=== PATIENT | male | born 1945 | race Caucasian/White ===

== ENCOUNTER 2016-10-15 17:48 | Emergency (ER) | payer MEDICARE, OTHER ==
--- NOTE | ~2016-10-15 | EKG ---
PATIENT: AMBERLY CORREA UNIT #: [id number] Ventricular Rate: 102 BPM Atrial Rate: 102 BPM P-R Interval: 172 ms QRS Duration: 88 ms Q-T Interval: 350 ms QTC Calculation(Bezet): 456 ms P [place]: 37 degrees Calculated R [place]: 42 degrees Calculated T [place]: 53 degrees Diagnosis Line: Sinus tachycardia Diagnosis Line: Otherwise normal ECG Diagnosis Line: When compared with ECG of 03-NOV-2015 19:22, Diagnosis Line: Vent. rate has increased BY 54 BPM Diagnosis Line: Confirmed by SILVIA CORRAL MD ([id number]) on Diagnosis Line: 10/19/2016 10:45:04 AM INTERPRETING MD: ELLIS POLO
--- NOTE | ~2016-10-15 | CR72 ---
[facility] A Service of [facility] & [facility] RADIOLOGY TEXT RESULTS PATIENT: AMBERLY CORREA LOCATION: [facility] : 41 UNIT #: [id number] AGE: [address]: Jf Baker MD SEX: M ORDER DR: [id number] [facility] [address] [place], [place] [address] [id number] MR#: [id number] Acc #: [id number] NAME: AMBERLY CORREA. : 1945 SEX: M STUDY DATE/TIME: 10/15/2016 19:02 UNIT: [facility] ROOM: STUDY DESCRIPTION: CR Chest Single View Portable Attending Physician: Jf Baker Ordering Physician: Ed Doc Liliana Ortiz Primary Care Physician: Lon Joy M.D. MEDICAL IMAGING REPORT This report is preliminary unless electronic signature is present EXAM Frontal chest, 10/15/2016 INDICATION 71-year-old male with chest pain since a fall from the bed today, hypertension, COPD. TECHNIQUE Frontal chest compared with 11/03/2015 FINDINGS The heart is enlarged but stable. Coarsened interstitial markings present bilaterally and not significantly changed suggestive of chronic fibrosis. No pneumothorax. No effusion or dense consolidation. IMPRESSION Cardiomegaly with chronic interstitial prominence throughout both lungs suggestive of chronic fibrosis rather than chronic edema. Dictated by... Angel Lyons M.D. THIS IS AN ELECTRONICALLY VERIFIED REPORT Angel Lyons M.D. at 10/16/2016 8:30 AM [place] TD: 10/16/2016 01:26 JOB #: [id number] MEDICAL IMAGING REPORT Page 1 of 1 COPY
[~2016-10-15 17:48] MED LIST: ?BP MED; ALBUTEROL17 GM; ALBUTEROL17 GM INH; AMBIEN10 MG PO; ASPIRIN PO; ASPIRIN81 M2 PO; ASPIRIN81 MG PO; ATARAX PO; ATIVAN PO; ATIVAN0.5 M1 PO; ATORVASTATIN CA20 MG PO; BISACODYL EC5 M1 PO; BUSPAR15 M2 PO; BUSPAR15 M3 PO; BUSPIRONE HCL10 M1 PO; CALAN-SR CAPL180 MG PO; CAPOZIDE PO; CATAPRES0.1 M1 PO; CATAPRES0.1 MG PO; CELEXA20 MG PO; CHEWABLE ASPIRI81 MG PO; CLONAZEPAM0.5 MG PO; CLONIDINE HCL0.3 MG PO; CLONIDINE PO; CLOPIDOGREL75 MG PO; COLACE PO; COLACE50 MG PO; COZAAR PO; COZAAR100 MG PO; COZAAR25 MG PO; DESYREL50 MG PO; DOC-Q-LACE100 MG PO; DOCUSATE SODIU100 MG PO; DOXEPIN HCL50 MG PO; FISH OIL SOFTGE1 CA1 PO; FLOMAX0.4 M1 PO; FOLIC ACID1 MG PO; GOLYTELY4000 ML PO; HCTZ PO; HUMIBID-LA600 MG DOB; HYDRALAZINE HCL50 MG PO; HYDROCHLOROTHIA25 MG PO; HYDROXYZINE HCL25 M1 PO; KLONOPIN0.5 M3 PO; LORAZEPAM1 MG PO; LOSARTAN POTAS100 MG PO; LOSARTAN POTASS50 MG PO; MEN'S DAILY FOR1 CAP PO; METOPROLOL TAR25 MG PO; MILK OF MAGNESIA PO; MIRALAX17 GM; MIRALAX17 GM PO; MULTI VITAMIN1 EACH PO; NITROGLYCERIN0.4 MG SL; NITROGLYGERIN0.4 MG SL; NO MEDICATIONS; NORVASC10 MG PO; OXYGEN; PAROXETINE HCL20 MG PO; PAXIL PO; PAXIL30 MG PO; PRAVACHOL PO; PRAVACHOL20 MG PO; PRAVASTATIN SOD20 MG PO; PREDNISONE PO; PREDNISONE10 MG PO; SYMBICORT INH; TOPROL XL 50 MG50 MG PO; TYLENOL/CODEINE1 TA1 PO; VALIUM2 MG PO; VERAPAMIL ER180 M1 PO; VERAPAMIL ER180 MG PO; VERAPAMIL ER240 MG PO; VIBRAMYCIN100 M1 DOB; XANAX0.5 MG PO; [UNRECOGNIZED DRUG - REMARK]
[2016-10-15 19:08] LABS: BASOPHIL# 0.1 X10e3 (0-0.3); BASOPHIL% 0.4 % (0-2.5); EOSINOPHIL# 0.3 X10e3 (0-0.7); EOSINOPHIL% 2.1 % (0.0-7.0); HEMOGLOBIN 8.9 gm/dL (13.0-16.0); LYMPHOCYTE# 2.5 X10e3 (1.0-3.5); LYMPHOCYTE% 18.4 % (17.0-45.0); MEAN CELL VOLUME 83.9 FL (83-96); MEAN CORPUSCULAR HEMOGLOBIN 26.8 PG (28-34); MEAN PLATELET VOLUME 7.6 FL (6.5-11.5); MONOCYTE# 1.1 X10e3 (0-1.0); MONOCYTE% 8.1 % (3.0-12.0); NEUTROPHIL# 9.7 X10e3 (1.5-7.1); PLATELET COUNT 361 X10e3 (140-420); RED BLOOD COUNT 3.33 X10e (3.90-5.60); RED CELL DISTRIBUTION WIDTH 15.8 % (11.0-15.5); WHITE BLOOD COUNT 13.7 X10e3 (4.0-10.5)
[2016-10-15 19:13] LABS: DIFF IND NO
[2016-10-15 19:26] LABS: BUN/CREATININE RATIO 14.5; GLOM FILT RATE Estimated 32.2 mL/min (>60); POTASSIUM 3.9 mmol/L (3.5-5.1)
[2016-10-15 19:27] LABS: POC - CKMB 13.4 ng/mL (0.0-7.9); POC - TROPONIN <0.05 ng/mL (<=0.05)
[2016-10-15 21:21] LABS: POC - CKMB 9.5 ng/mL (0.0-7.9); POC - TROPONIN <0.05 ng/mL (<=0.05)
[2016-11-07] MEDS ORDERED: CARDURA4 M1 PO (23:09)
[2016-11-07] MEDS ORDERED: DOCUSATE SODIU100 MG PO (23:09)
[2016-11-07] MEDS ORDERED: FLOMAX0.4 M1 PO (23:10)
[2016-11-07] MEDS ORDERED: LIPITOR20 MG PO (23:11)
[2016-11-07] MEDS ORDERED: HYDRALAZINE HC100 MG PO (23:11)
[2016-11-07] MEDS ORDERED: PAXIL PO (23:12)
[2016-11-07] MEDS ORDERED: NORVASC10 MG PO (23:12)
[2016-11-07] MEDS ORDERED: KLONOPIN0.5 MG PO (23:13)
[2016-11-07] MEDS ORDERED: ATIVAN0.5 MG PO (23:14)
[2016-11-07] MEDS ORDERED: PREDNISONE10 MG PO (23:15)
[2016-11-07] MEDS ORDERED: MELATONIN3 MG PO (23:15)
== END 2016-10-16 01:00 | disposition home or self-care (01) ==
LOC: CED 17:48
PROVIDERS: Emergency Medicine
DX: S20.212A Contusion of left front wall of thorax, initial encounter (principal); D64.9 Anemia, unspecified; N18.9 Chronic kidney disease, unspecified; J44.9 Chronic obstructive pulmonary disease, unspecified; F41.9 Anxiety disorder, unspecified; F17.220 Nicotine dependence, chewing tobacco, uncomplicated; Z79.899 Other long term (current) drug therapy; W06.XXXA Fall from bed, initial encounter; Y92.129 Unspecified place in nursing home as the place of occurrence of the external cause
CPT/HCPCS: 36415; 71010; 80048; 82553; 84484; 85025; 93005; 99285